=== PATIENT | female | born 1990 | race African-American/Black ===

== ENCOUNTER 2016-12-26 14:37 | Emergency (ER) | payer MEDICAID, OTHER ==
[~2016-12-26] VITALS: Ht 165.1 cm; Wt 71.0 kg
[2016-12-26 14:43] VITALS: BP 117/71
[2016-12-26 16:25] LABS: CLARITY URINE CLEAR (CLEAR); COLOR URINE YELLOW (YELLOW); GLUCOSE URINE NEGATIVE (NEGATIVE); KETONES URINE NEGATIVE (NEGATIVE); LEUKOCYTE ESTERASE URINE NEGATIVE (NEGATIVE); NITRITE URINE NEGATIVE (NEGATIVE); OCCULT BLOOD URINE 3+ (NEGATIVE); PROTEIN URINE NEGATIVE (NEGATIVE); SPECIFIC GRAVITY URINE 1.036 (1.005-1.030); UROBILINOGEN URINE 0.2 E.U./dL (0.2-1.0)
[2016-12-30 14:21] LABS: CHLAMYDIA TRACHOMATIS NAA Negative (Negative); NEISSERIA GONORRHOEAE NAA Negative (Negative)
== END 2016-12-26 17:30 | disposition left against medical advice (07) ==
LOC: ER 15:26
DX: N89.8 Other specified noninflammatory disorders of vagina (principal); N39.0 Urinary tract infection, site not specified
CPT/HCPCS: 81001; 87086; 87491; 87591; 99284